=== PATIENT | female | born 1955 | race Caucasian/White ===

== ENCOUNTER 2022-06-16 08:49 | Day surgery (SDC) | payer MEDICARE, MEDICAID, SELFPAY ==
[2022-06-10 14:45] VITALS: BMI 21.6
--- NOTE | 2022-06-12 15:54 | MHC.SHP ---
Pre-Procedural Eval Section A Date of Service: 06/12/22 The patient is an INPATIENT: No Changes since office visit: No Cold of Flu in the past 2 weeks, No New Medical Problems, No Changes in Medication and No Patient answered all questions The History & Physical has been completed within 30 days and I have reviewed it.: Yes Section B Chief Complaint: Age-related nuclear cataract, left eye Allergies: Allergies Allergy/AdvReac Type Severity Reaction Status Date / Time No Known Allergies Allergy Verified 06/10/22 14:43 Plan Diagnosis/Plan: Unchanged I have reviewed the history and physical and performed a pertinent physical examination on my patient. No changes have occurred unless specified. Time Spent With Patient Time: Total time managing care of this patient today ____ minutes.
[2022-06-16 10:01] LABS: Glucose, Whole Blood 197 mg/dL (60-115)
[2022-06-16 10:03] VITALS: BP 165/77; PULSE 98; RESP 18; TEMP 36.2; O2SAT 100; BMI 22.4
[2022-06-16] MEDS: Tetracaine HCl/PF 0.5% Oph Sol 4 ML DROPS 1 DROP EYE-LEFT (10:05)
[2022-06-16] MEDS: Ketorolac Tromethamine 0.5% Op 5 ML DROPS 1 DROP EYE-LEFT ×3 (10:06→10:10)
[2022-06-16] MEDS: Phenylephrine HCL 2.5% Oph SoL 2 ML BOTTLE 1 DROP EYE-LEFT ×3 (10:06→10:10)
[2022-06-16] MEDS: Tropicamide 1 % Ophth Sol 3 ML BTL 1 DROP EYE-LEFT ×3 (10:06→10:10)
[2022-06-16] MEDS: Cyclopentolate 1 % Ophth Sol 2 ML DRPBTL 1 DROP EYE-LEFT ×3 (10:06→10:10)
--- NOTE | 2022-06-16 10:12 | P.CONAN_ITS ---
[facility] Past Medical History Medical History (Updated 06/10/22 @ 14:43 by Krystle Contreras RN) Anemia Anxiety CAD (coronary artery disease) Cardiomyopathy CVA (cerebral vascular accident) DM type 2 (diabetes mellitus, type 2) GERD (gastroesophageal reflux disease) History of seizures HTN (hypertension) Hx of cardiac arrest Hyperlipidemia Insomnia Mood disorder Osteoporosis Severe depression Family History Family history of problems with anesthesia: No Surgical History Surgical History (Updated 06/10/22 @ 14:41 by Krystle Contreras RN) History of cholecystectomy History of right cataract extraction History of tonsillectomy History of tubal ligation Hx of colonoscopy S/P drug eluting coronary stent placement History of Problems with Anesthesia: No Social History Social History Are you a primary child care associate teacher to a significant other at home: No Do you presently have visiting nurse or other home services: No Patient Tobacco Use Status: Former Tobacco user Use of substances other than those prescribed or required for medical reasons: No Have you been hit, kicked, punched, or otherwise hurt by someone within the past year? If so, by whom?: No Are you DNR?: No Advance Directives: No Advance Directives Information Provided: Yes Advance Directives on File: No Recently lost weight without trying: No Eating poorly because of decreased appetite: No Meds Allergies Allergy/AdvReac Type Severity Reaction Status Date / Time No Known Allergies Allergy Verified 06/10/22 14:43 Active Medications: Current Medications Cyclopentolate HCl (Cyclopentolate 1 % Ophth Joelle 2 Ml Drpbtl) 1 drop EYE-LEFT Q5M LUCY Stop: 06/16/22 10:26 Last Admin: 06/16/22 10:10 Dose: 1 drop Ketorolac Tromethamine (Ketorolac Tromethamine 0.5% Op 5 Ml Drops) 1 drop EYE- LEFT Q5M LUCY Stop: 06/16/22 10:26 Last Admin: 06/16/22 10:10 Dose: 1 drop Phenylephrine HCl (Phenylephrine Hcl 2.5% Oph Joelle 2 Ml Bottle) 1 drop EYE-LEFT Q5M LUCY Stop: 06/16/22 10:26 Last Admin: 06/16/22 10:10 Dose: 1 drop Povidone Iodine (Povidone Iodine 5 % Ophth Soln 30 Ml Bottle) 1 appl EYE-LEFT PREOP PRN PRN Reason: Pre-Op Surgical Implant Prophy Tropicamide (Tropicamide 1 % Ophth Joelle 3 Ml Btl) 1 drop EYE-LEFT Q5M LUCY Stop: 06/16/22 10:26 Last Admin: 06/16/22 10:10 Dose: 1 drop Home Medications Medication Instructions Recorded Confirmed Last Taken Type amitriptyline 25 mg tablet 1 tab PO BEDTIME 06/10/22 06/10/22 Unknown History atorvastatin 80 mg tablet 1 tab PO DAILY 06/10/22 06/10/22 Unknown History carvedilol 3.125 mg tablet 1 tab PO BID 06/10/22 06/10/22 Unknown History cholecalciferol (vitamin D3) 25 25 mcg PO DAILY 06/10/22 06/10/22 Unknown History mcg (1,000 unit) tablet (Vitamin D3) citalopram 20 mg tablet 1 tab PO DAILY 06/10/22 06/10/22 Unknown History dulaglutide 3 mg/0.5 mL 0.5 ml subcut QWEEK 06/10/22 06/10/22 Unknown History subcutaneous pen injector (Trulicity) ibuprofen 400 mg tablet 400 mg PO Q8H PRN Pain 06/10/22 06/10/22 Unknown History insulin glargine 100 unit/mL 30 unit subcut BID 06/10/22 06/10/22 Unknown History subcutaneous solution (Lantus U-100 Insulin) insulin lispro 100 unit/mL 30 unit subcut TID 06/10/22 06/10/22 Unknown History subcutaneous solution (Humalog U-100 Insulin) lisinopril 5 mg tablet 1 tab PO DAILY 06/10/22 06/10/22 Unknown History magnesium oxide 400 mg PO BID 06/10/22 06/10/22 Unknown History multivitamin,tx-minerals 1 tab PO DAILY 06/10/22 06/10/22 Unknown History nitroglycerin 0.4 mg sublingual 0.4 mg sublingual Q5M PRN Chest 06/10/22 06/10/22 Unknown History tablet Pain omeprazole 20 mg delayed 20 mg PO DAILY 06/10/22 06/10/22 Unknown History release,disintegrating tablet zolpidem 5 mg tablet 1 tab PO BEDTIME PRN Sleep 06/10/22 06/10/22 Unknown History Exam Exam Date and Time: June 16, 2022 101 Height,Weight and Vital Signs: Height 5 ft 5 in Weight 61.235 kg Last Vital Signs Temp 97.2 F 06/16/22 10:03 Pulse 98 06/16/22 10:03 Resp 18 06/16/22 10:03 BP 165/77 H 06/16/22 10:03 Pulse Ox 100 06/16/22 10:03 O2 Del Method Room Air 06/16/22 10:03 Pertinent Lab Results Pertinent Lab Results: Laboratory Tests 06/16/22 09:58 POC Glucose 197 H Airway Mallampati Class: II TM Dist: >3cm Neck ROM: Full Denture: Upper and Lower Heart: rrr Lungs: cta Assessment and Plan Assessment Anesthesia Assessment: Anesthesia Plan Discussed and Chart Reviewed Final Anesthetic Review Family History of Problems with Anesthesia: No History of Problems with Anesthesia: No NPO: Yes ASA Class: III Final Preanesthetic Review: No Changes in Pt Med Stat, Meds/Allgs Chart Reviewed and Consent Obtained/Reviewed Patient Risk: Intermediate Procedure Risk: Intermediate Anesthetic Plan Anesthetic Plan: MAC: Disposition: Standard PACU
--- NOTE | 2022-06-16 10:56 | HO.PNOPHT ---
Ophthalmology Procedure Procedure Date of Service: 06/16/22 Ophthalmology Viscoelastic: Constanza Mcguiret Dual Pack Pro Ophthalmology Lenses: TECSINDY [id number] (20) Procedure Notes: PREOPERATIVE DIAGNOSIS: Decreased visual acuity left eye secondary to cataract POSTOPERATIVE DIAGNOSIS: Same PROCEDURE: Left cataract extraction with intraocular lens insertion SURGEON: Markel Patricio M.D. ANESTHESIA: Topical/MAC changed to General ESTIMATED BLOOD LOSS: None COMPLICATIONS: None After obtaining informed consent, the patient was brought to the operation room suite and placed in the supine position. After adequate sedation per anesthesia, topical drops of Tetracaine were given to the left eye. The eye was then prepped and draped in the usual sterile fashion. The operating room microscope was then positioned over the operative eye and a lid speculum placed. A paracentesis was created. Viscoelastic was then instilled into the anterior chamber. A three plane incision was then created temporally, utilizing a 2.85 mm keratome. Capsulotomy forceps were then utilized to create a circular tear capsulotomy.The patient became more agitated, movements could not be suppressed so the patient was placed under General Anesthesia. Hydrodissection and hydrodelineation were carried out until adequate mobilization of the nucleus occurred. Phacoemulsification was then utilized to remove the dense central nucleus followed by removal of the cortical material utilizing the automated aspiration irrigation unit. Viscoat elastic was instilled into the posterior capsular bag followed by placement of a posterior chamber intraocular lens without difficulty. The residual Viscoat elastic was then removed utilizing the automated IA machine. The wound was check and found to be watertight. The patient tolerated the procedure well and the lid speculum was removed. Intracameral injection of Vigamox 0.1 mL followed by a subtenon injection of Kenalog-40 0.2 mL were administered. The patient will be seen in the a.m.
[2022-06-16 11:47] VITALS: BP 138/80; PULSE 71; RESP 16; TEMP 36.1; O2SAT 95
[2022-06-16 11:52] VITALS: BP 150/72; PULSE 90; RESP 16; O2SAT 96
[2022-06-16 11:57] VITALS: BP 122/64; PULSE 91; RESP 16; O2SAT 97
[2022-06-16 12:02] VITALS: BP 130/73; PULSE 90; RESP 16; TEMP 36.8; O2SAT 97
[2022-06-16 12:17] VITALS: BP 139/71; PULSE 86; RESP 16; TEMP 36.8; O2SAT 97
== END 2022-06-16 12:38 | disposition home or self-care (01) ==
PROVIDERS: PCP Nurse Practitioner Family; Visit Provider Ophthalmology
PROC: (CPT 66985; principal; 2022-06-16 11:20)
DX: H25.12 Age-related nuclear cataract, left eye (principal); H54.7 Unspecified visual loss; H40.053 Ocular hypertension, bilateral; I10 Essential (primary) hypertension; E11.3291 Type 2 diabetes mellitus with mild nonproliferative diabetic retinopathy without macular edema, right eye; Z96.1 Presence of intraocular lens; Z79.4 Long term (current) use of insulin; Z79.899 Other long term (current) drug therapy; Z87.891 Personal history of nicotine dependence
CPT/HCPCS: 66984; 82947; J2250; J2370; J2405; J3010; J3301; V2632